=== PATIENT | female | born 1960 | race Hispanic/Latino ===

== ENCOUNTER 2022-07-03 09:46 | Emergency (ER) | payer OTHER ==
[~2022-07-03] VITALS: Ht 165.1 cm; Wt 74.5 kg
[2022-07-03 10:57] VITALS: BP 131/63
== END 2022-07-03 11:03 | disposition home or self-care (01) ==
LOC: FSED 09:49
DX: R07.9 Chest pain, unspecified (principal); R00.2 Palpitations; I10 Essential (primary) hypertension; E78.5 Hyperlipidemia, unspecified; G47.00 Insomnia, unspecified
CPT/HCPCS: 71046; 80053; 81003; 82553; 84484; 85025; 85379; 93005; 99284